=== PATIENT | female | born 1970 | race Caucasian/White ===

== ENCOUNTER → 2017-10-23 | Outpatient (CLI) | payer BC ==
--- NOTE | 2017-10-24 13:07 | MM ---
Reason for exam: screening (asymptomatic). Last mammogram was performed 12 years and 2 months ago. Physical Findings: A clinical breast exam by your physician is recommended on an annual basis and results should be correlated with mammographic findings. MG Screening Mammo w CAD Bilateral CC and MLO view(s) were taken. No prior studies available for comparison. The breast tissue is extremely dense which could obscure a lesion on mammography. Finding: There is a typically benign 3 mm obscured oval mass located 4 cm from the nipple in the lower outer quadrant, middle position of the left breast. ASSESSMENT: Incomplete: need additional imaging evaluation, BI-RAD 0 RECOMMENDATION: Special view mammogram of the left breast. If lesion persists on supplemental views, image directed ultrasound is recommended. [facility] will attempt to contact patient to return for supplemental views and ultrasound if indicated.
== END | disposition home or self-care (01) ==
LOC: RADMAMWWP 08:54
PROVIDERS: ATTEND Family Medicine
DX: Z12.31 Encounter for screening mammogram for malignant neoplasm of breast (principal)
CPT/HCPCS: 77067

== ENCOUNTER → 2017-11-22 | Outpatient (CLI) | payer BC ==
--- NOTE | 2017-11-22 10:32 | MM ---
Reason for exam: additional evaluation requested from abnormal screening. Last mammogram was performed 1 month ago. History: Patient has history of other cancer at age 34. Physical Findings: Nurse did not find any significant physical abnormalities on exam. MG 3D Work Up W/Cad LT Spot compression CC, spot compression MLO, and LM view(s) were taken of the left breast. Technologist: Belen Flower RT (R)(M) Prior study comparison: October 23, 2017, bilateral MG screening mammo w CAD. The breast tissue is heterogeneously dense. This may lower the sensitivity of mammography. Nodularity seen on screening does not clearly persist. Precautionary 6 month follow up recommended. These results were verbally communicated with the patient and result sheet given to the patient on 11/22/17. ASSESSMENT: Probably benign, BI-RAD 3 RECOMMENDATION: Follow-up diagnostic mammogram of the left breast in 6 months.
== END | disposition home or self-care (01) ==
LOC: RADMAMWWP 09:25
PROVIDERS: ATTEND Family Medicine
DX: N63.20 Unspecified lump in the left breast, unspecified quadrant (principal)
CPT/HCPCS: 77061; 77065

== ENCOUNTER → 2019-04-23 | Outpatient (CLI) | payer BC ==
--- NOTE | 2019-04-23 10:29 | US ---
EXAMINATION TYPE: US abdomen complete DATE OF EXAM: 04/23/2019 COMPARISON: None CLINICAL HISTORY: 48-year-old female Z85.528 History of Kidney Cancer. Right nephrectomy 2006 TECHNIQUE: Multiple sonographic images of the abdomen are obtained. FINDINGS: EXAM MEASUREMENTS: Liver Length: 15.1 cm Gallbladder Wall: 0.2 cm CBD: 5.6 mm Spleen: 9.8 cm Right Kidney: Surgically absent Left Kidney: 12.4 x 6.7 x 5.7 cm Pancreas: Tail obscured by overlying bowel gas, visualized portions wnl Liver: wnl Gallbladder: wnl Evidence for sonographic Ruiz's sign: No CBD: Upper limits of normal in caliber. Spleen: wnl Right Kidney: Surgically absent Left Kidney: No hydronephrosis. Upper IVC: wnl Abd Aorta: wnl IMPRESSION: 1. The bile duct measures upper limits of normal in caliber at 5.6 mm. This may be chronic in this pa tient. Correlate with alkaline phosphatase and bilirubin levels to exclude early biliary obstruction. 2. Status post right nephrectomy.
== END | disposition home or self-care (01) ==
LOC: RADUSWWP 09:41
PROVIDERS: ATTEND Family Medicine
DX: Z85.528 Personal history of other malignant neoplasm of kidney (principal); Z90.6 Acquired absence of other parts of urinary tract
CPT/HCPCS: 76700

== ENCOUNTER 2019-05-10 19:45 | Observation (INO) | payer BC ==
[2019-05-10] MEDS ORDERED: SODIUM CHLORIDE 0.9% 1,000 ML IV STA (20:43)
[2019-05-10] MEDS ORDERED: AMPICILLIN-SULBACTAM 3 GM in SODIUM CHLORIDE 0.9% 100 ML IVPB STA (20:45)
[2019-05-10] MEDS ORDERED: VANCOMYCIN IV PER PHARMACY 1 EACH MISC MISCELLANE PRN (20:47)
[2019-05-10] MEDS ORDERED: LORazepam 1 MG TAB PO STA (20:50)
[2019-05-10] MEDS ORDERED: MORPHINE SULFATE 4 MG/ML SYRINGE IV STA (20:50)
[2019-05-10] MEDS ORDERED: VANCOMYCIN 1,500 MG in SODIUM CHLORIDE 0.9% 250 ML IVPB STA (20:50)
--- NOTE | 2019-05-10 20:54 | ED ---
General Adult HPI - General Chief complaint: Wound/Laceration Stated complaint: Dog Bite Time Seen by Provider: 05/10/19 20:21 Source: patient, RN notes reviewed, old records reviewed Mode of arrival: ambulatory Limitations: no limitations - History of Present Illness Initial comments: 48-year-old female patient past history of solitary kidney due to renal cell carcinoma approximately 15 years ago presents to ED for chief complaint of infected dog bite. Patient reports that on Monday she was bitten by her dog on the left forearm region. Patient reports that she went to her primary care provider on Monday was placed on Augmentin administered a shot of Rocephin. Patient's tetanus is up-to-date. Patient reports that she saw her primary care provider today, she has total of 6 puncture wounds. 2 on the dorsal aspect of the proximal left forearm region. She does report that there was purulent drainage today, incision and drainage and packing was performed by primary care provider. Patient does have 2 other puncture wounds on the lateral aspect of the proximal left forearm. Drainage noted today. Patient has 2 more puncture wounds on the palmar aspect of the left forearm without any drainage noted. Patient reports that she did have erythema around these bite brown, she reports that this was marked by her primary care provider. Patient states that the erythema and warmth is not extending up into the elbow region. Patient is still full range of motion of the elbow. Denies a systemic symptoms of infection or fever. Denies any other complaints. Systemic: Pt denies fatigue, fever/chills, rash. Pt denies weakness, night sweats, weight loss. Neuro: Pt denies headache, visual disturbances, syncope or pre-syncope. HEENT: Pt denies ocular discharge or irritation, otalgia, rhinorrhea, pharyngitis or notable lymphadenopathy. Cardiopulmonary: Pt denies chest pain, SOB, heart palpitations, dyspnea on exertion. Abdominal/GI: Pt denies abdominal pain, n/v/d. : Pt denies dysuria, burning w/ urination, frequency/urgency. Denies new onset urinary or bowel incontinence. MSK: Pt denies myalgia, loss of strength or function in extremities. Neuro: Pt denies new onset weakness, paresthesias. - Related Data Allergies Allergy/AdvReac Type Severity Reaction Status Date / Time No Known Allergies Allergy Verified 05/10/19 19:53 Review of Systems ROS Statement: Those systems with pertinent positive or pertinent negative responses have been documented in the HPI. ROS Other: All systems not noted in ROS Statement are negative. Past Medical History Past Medical History: Cancer History of Any Multi-Drug Resistant Organisms: None Reported Additional Past Surgical History / Comment(s): rt kidney removed Past Psychological History: No Psychological Hx Reported Smoking Status: Never smoker Past Alcohol Use History: None Reported Past Drug Use History: None Reported General Exam - General Exam Comments Initial Comments: Constitutional: NAD, AOX3, Pt has pleasant affect. HEENT: NC/AT, trachea midline, neck supple, no lymphadenopathy. Posterior pharynx non erythematous, without exudates. External ears appear normal, without discharge. Mucous membranes moist. Eyes PERRLA, EOM intact. There is no scleral icterus. No pallor noted. Cardiopulmonary: RRR, no murmurs, rubs or gallops, no JVD noted. Lungs CTAB in anterior and posterior colon. No peripheral edema. Abdominal exam: Abdomen soft and non-distended. Abdomen non-tender to palpation in all 4 quadrants. Bowel sounds active in LLQ. No hepatosplenomegaly. No ecc hymosis Neuro: CN II-XII grossly intact. No nuchal rigidity. No raccon eyes, no bourne sign, no hemotympanum. No cervical spinal tenderness. MSK: No posterior calf tenderness bilaterally, homans sign negative bilaterally. Posterior tibialis and radial pulse +2 bilaterally. Sensation intact in upper and lower extremities. Full active ROM in upper and lower extremities, 5/5 stregnth. Derm: 6 total puncture wounds left forearm region. 2 on the proximal dorsal aspect of the left forearm, small amount of erythema, incision and drainage and packing was performed by primary care provider today. Small amount of erythema surrounding this. 2 puncture wounds on the lateral aspect of the proximal f orearm, mild amount of surrounding erythema, purulent drainage was expressed. Culture was obtained. 2 puncture wounds on the palmar aspect of the proximal left forearm. Small amount of surrounding erythema. No drainage. There is erythema and warmth extending into the elbow region. Full active range of motion. Neurovascularly intact. Limitations: no limitations Course Vital Signs 05/10/19 19:48 Temperature 98.2 F Pulse Rate 113 H Respiratory 20 Rate Blood Pressure 189/121 O2 Sat by Pulse 99 Oximetry Medical Decision Making - Medical Decision Making 48-year-old female patient with the for infected dog bite left forearm. Patient has been on Monday. Starting antibiotics on Monday. Isn't taking Augmentin.. Drainage began yesterday continued today. Denies any fevers. Patient was seen by primary care provider today were just drained with packing was performed. Physical exam did reveal erythematous puncture wound left forearm.Drainage was obtained of the lateral aspect. Culture was obtained. Plain films displayed subcutaneous edema. Patient initiated on Unasyn Vanco. We'll be admitted for further evaluation. Case discussed with Dr. Washington. - Lab Data Result diagrams: 05/10/19 21:18 05/10/19 21:18 Lab Results 05/10/19 05/10/19 05/10/19 Range/Units 21:18 21:18 21:18 WBC 9.7 (3.8-10.6) k/uL RBC 4.91 (3.80-5.40) m/uL Hgb 15.3 (11.4-16.0) gm/dL Hct 45.4 (34.0-46.0) % MCV 92.3 (80.0-100.0) fL MCH 31.1 (25.0-35.0) pg MCHC 33.7 (31.0-37.0) g/dL RDW 11.9 (11.5-15.5) % Plt Count 244 (150-450) k/uL Neutrophils % 66 % Lymphocytes % 19 % Monocytes % 7 % Eosinophils % 4 % Basophils % 0 % Neutrophils # 6.4 (1.3-7.7) k/uL Lymphocytes # 1.9 (1.0-4.8) k/uL Monocytes # 0.7 (0-1.0) k/uL Eosinophils # 0.4 (0-0.7) k/uL Basophils # 0.0 (0-0.2) k/uL Sodium 135 L (137-145) mmol/L Potassium 4.4 (3.5-5.1) mmol/L Chloride 101 (98-107) mmol/L Carbon Dioxide 25 (22-30) mmol/L Anion Gap 9 mmol/L BUN 25 H (7-17) mg/dL Creatinine 0.62 (0.52-1.04) mg/dL Est GFR (CKD-EPI)AfAm >90 (>60 ml/min/1.73 sqM) Est GFR (CKD-EPI)NonAf >90 (>60 ml/min/1.73 sqM) Glucose 115 H (74-99) mg/dL Plasma Lactic Acid Tristan 0.9 (0.7-2.0) mmol/L Calcium 9.5 (8.4-10.2) mg/dL Total Bilirubin 0.5 (0.2-1.3) mg/dL AST 23 (14-36) U/L ALT 11 (4-34) U/L Alkaline Phosphatase 106 (38-126) U/L Total Protein 7.4 (6.3-8.2) g/dL Albumin 4.3 (3.5-5.0) g/dL Disposition Clinical Impression: Infected dog bite, Failure of outpatient treatment Disposition: ADMITTED IP TO THIS [facility] Condition: Serious Is patient prescribed a controlled substance at d/c from ED?: No Referrals: Vernon Roa MD [Primary Care Provider] - 1-2 days
[2019-05-10 21:54] LABS: ALT 11 U/L (4-34); AST 23 U/L (14-36); African American GFR (CKD) >90 (>60 ml/min/1.73 sqM); Albumin 4.3 g/dL (3.5-5.0); Alkaline Phosphatase 106 U/L (38-126); Anion Gap 9 mmol/L; Basophils % (A) 0 %; Blood Urea Nitrogen 25 mg/dL (7-17); Calcium 9.5 mg/dL (8.4-10.2); Carbon Dioxide 25 mmol/L (22-30); Chloride 101 mmol/L (98-107); Eosinophils # (A) 0.4 k/uL (0-0.7); Eosinophils % (A) 4 %; Glucose 115 mg/dL (74-99); HCT 45.4 % (34.0-46.0); HGB 15.3 gm/dL (11.4-16.0); Lymphocytes # (A) 1.9 k/uL (1.0-4.8); Lymphocytes % (A) 19 %; MCH 31.1 pg (25.0-35.0); MCHC 33.7 g/dL (31.0-37.0); MCV 92.3 fL (80.0-100.0); Mean Platelet Volume 9.9; Monocytes # (A) 0.7 k/uL (0-1.0); Monocytes % (A) 7 %; Neutrophils # (A) 6.4 k/uL (1.3-7.7); Neutrophils % (A) 66 %; Non-African American GFR(CKD) >90 (>60 ml/min/1.73 sqM); Platelet Count 244 k/uL (150-450); Potassium 4.4 mmol/L (3.5-5.1); RBC 4.91 m/uL (3.80-5.40); RDW 11.9 % (11.5-15.5); Sodium 135 mmol/L (137-145); Total Bilirubin 0.5 mg/dL (0.2-1.3); Total Protein 7.4 g/dL (6.3-8.2); WBC 9.7 k/uL (3.8-10.6)
--- NOTE | 2019-05-10 21:59 | XR ---
EXAMINATION TYPE: XR forearm LT DATE OF EXAM: 05/10/2019 COMPARISON: NONE HISTORY: Pain. Dog bite TECHNIQUE: 2 views FINDINGS: There is subcutaneous edema around the forearm posteriorly. I see no fracture nor dislocati on. Wrist joint and elbow joint appear intact. IMPRESSION: Subcutaneous edema. No fracture seen.
--- NOTE | 2019-05-10 22:00 | XR ---
EXAMINATION TYPE: XR elbow complete LT DATE OF EXAM: 05/10/2019 COMPARISON: NONE HISTORY: Dogbite. Pain. TECHNIQUE: 3 views FINDINGS: Joint spaces are normal. I see no evidence of elbow joint effusion. There is subcutaneous e agnieszka on the dorsal aspect of the proximal ulna. IMPRESSION: No fracture. Normal elbow joint. Subcutaneous edema.
[2019-05-10] MEDS ORDERED: NALOXONE 0.4 MG/ML 1 ML VIAL IV PRN (22:01)
[2019-05-10] MEDS: SODIUM CHLORIDE 0.9% 1,000 ML IV SCH (22:41)
[2019-05-11] MEDS ORDERED: AMPICILLIN-SULBACTAM 3 GM in SODIUM CHLORIDE 0.9% 100 ML IVPB SCH ×2
[2019-05-11 00:15] LABS: Appearance,Urine Clear (Clear); Bilirubin,Urine Negative (Negative); Blood,Urine Negative (Negative); Color,Urine Light Yellow; Glucose,Urine (UA) Negative (Negative); Ketones,Urine Negative (Negative); Leukocyte Esterase,Urine Moderate (Negative); Nitrite,Urine Negative (Negative); PH, Urine 6.5 (5.0-8.0); Protein,Urine Negative (Negative); RBC,Urine 1 /hpf (0-5); Squamous Epithelial Cell,Urine 3 /hpf (0-4); Urobilinogen,Urine <2.0 mg/dL (<2.0); WBC,Urine 6 /hpf (0-5)
[2019-05-11] MEDS: MORPHINE SULFATE 4 MG/ML SYRINGE IV PRN ×2 (01:44→06:48)
[2019-05-11] MEDS: AMPICILLIN-SULBACTAM 3 GM in SODIUM CHLORIDE 0.9% 100 ML IVPB SCH ×4 (05:04→21:35)
[2019-05-11] MEDS: ONDANSETRON 4 MG/2 ML VIAL IVP PRN ×2 (09:15→16:34)
[2019-05-11] MEDS: VANCOMYCIN 1,500 MG in SODIUM CHLORIDE 0.9% 250 ML IVPB SCH (10:09)
--- NOTE | 2019-05-11 12:22 | P.HPIM ---
History of Present Illness H&P Date: 05/11/19 Chief Complaint: Dog bite left forearm This is a 48-year-old white female although the practice. She was trying to clean her dogs feet, but I'll get excited and bit her. Dogs frequently outside and chasing squirrels and other animals. She indicates she believes dog's shots are up-to-date. She indicates has not been acting strangely that she is aware of. She was bit on the left forearm both dorsal and volar. She cleaned the wounds with hydrogen peroxide but did not irrigate the deeper puncture wound of the dorsal forearm. She reports increased redness and pain. She was seen in the office yesterday in the morning, and wound cultures were taken. She was started on Augmentin and given a dose of IM Rocephin at this time. Last night her redness was worsening and she came emergency room. She received Unasyn and vancomycin started on Unasyn. He is now resting comfortably on the floor. She denies any chest pains, pressures, shortness breath. Animal control will be picking up her dog Review of Systems All systems: negative Past Medical History Past Medical History: Cancer History of Any Multi-Drug Resistant Organisms: None Reported Additional Past Surgical History / Comment(s): rt kidney removed Past Psychological History: No Psychological Hx Reported Smoking Status: Never smoker Past Alcohol Use History: None Reported Past Drug Use History: None Reported Medications and Allergies Home Medications Medication Instructions Recorded Confirmed Type Amoxicillin/Potassium Clav 1 tab PO BID 05/11/19 05/11/19 History [Augmentin 875-125 Tablet] Cholecalciferol [Vitamin D3 (25 1,000 unit PO DAILY 05/11/19 05/11/19 History Mcg = 1000 Iu)] Allergies Allergy/AdvReac Type Severity Reaction Status Date / Time No Known Allergies Allergy Verified 05/11/19 10:38 Physical Exam Vitals: Vital Signs Temp Pulse Pulse Resp BP BP Pulse Ox 05/11/19 06:20 97.5 F L 81 16 117/77 99 05/10/19 23:46 97.7 F 86 17 118/75 98 05/10/19 22:38 97.7 F 85 20 147/93 99 05/10/19 19:48 98.2 F 113 H 20 189/121 99 Intake and Output 05/10/19 05/11/19 05/11/19 22:59 06:59 14:59 Other: Voiding Method Toilet # Voids 0 Weight 78.517 kg 78.517 kg GENERAL: Well-appearing, well-nourished minimally nervous. There is a dressing to her left forearm. HEAD: Atraumatic, normocephalic. EYES: Pupils equal round and reactive to light, extraocular movements intact, sclera anicteric, conjunctiva are normal. ENT:nares patent, oropharynx clear without exudates. Moist mucous membranes. NECK: Normal range of motion, supple without lymphadenopathy or JVD, no thyromegaly LUNGS: Breath sounds clear to auscultation bilaterally and equal. No wheezes rales or rhonchi. HEART: Regular rate and rhythm without murmurs, rubs or gallops.S1S2 Normal ABDOMEN: Soft, nontender, normoactive bowel sounds. No guarding, no rebound. No masses appreciated. EXTREMITIES: Normal range of motion, no pitting or edema. No clubbing or cyanosis. There are 3 puncture wounds to the volar forearm with crust overlying these. There is no periwound erythema. There is deeper puncture wound to the dorsal left forearm. There is the remnants of silver alginate in the wound. There is no palpable discharged today. This wound is improved compared to my examination of it 24 hours ago. NEUROLOGICAL: Cranial nerves II through XII grossly intact. Normal speech, normal gait. PSYCH: Normal mood, normal affect. SKIN: Warm, Dry, normal turgor, no rashes or lesions noted. Results CBC & Chem 7: 05/10/19 21:18 05/10/19 21:18 Labs: Abnormal Lab Results - Last 24 Hours (Table) 05/10/19 05/10/19 Range/Units 21:18 23:53 Sodium 135 L (137-145) mmol/L BUN 25 H (7-17) mg/dL Glucose 115 H (74-99) mg/dL Ur Leukocyte Esterase Moderate H (Negative) Urine WBC 6 H (0-5) /hpf Microbiology - Last 24 Hours (Table) 05/10/19 21:44 Gram Stain - Preliminary Arm - Left Wound Culture - Preliminary Comments: Elbow and forearm x-rays reports were reviewed. No fractures or foreign bodies. Thrombosis Risk Factor Assmnt - DVT/VTE Prophylaxis DVT/VTE Prophylaxis: Low risk, early ambulation encouraged - Choose All That Apply Any of the Below Risk Factors Present?: Yes Each Factor Represents 1 point: Age 41-60 years, Obesity (BMI >25) Other Risk Factors: No Thrombosis Risk Factor Assessment Total Risk Factor Score: 2 Thrombosis Risk Factor Assessment Level: Low Risk Assessment and Plan (1) Infected dog bite Current Visit: Yes Status: Acute Priority: High Code(s): W54.0XXA - BITTEN BY DOG, INITIAL ENCOUNTER; L08.9 - LOCAL INFECTION OF THE SKIN AND SUBCUTANEOUS TISSUE, UNSP SNOMED Code(s): 514633758 (2) Cellulitis of left forearm Current Visit: Yes Status: Acute Priority: High Code(s): L03.114 - CELLULITIS OF LEFT UPPER LIMB SNOMED Code(s): 42713083 (3) Failure of outpatient treatment Current Visit: Yes Status: Acute Priority: High Code(s): Z78.9 - OTHER SPECIFIED HEALTH STATUS SNOMED Code(s): 979519000 Plan: She has received 1 dose of vancomycin and there is not need for further doses this time. Continue Unasyn. General surgeon in consult for possible debridement. We'll wait on his evaluation. Infectious disease will be consult regarding the risk of rabies and her dog. Wound cultures from [facility] from May 10 2019 a.m. show few gram- negative rods at this time. Repeat labs in a.m. Packed the wound gently withl silver alginate rope. Silvadene cream every 12 hours to the cellulitic area periwound and the volar dog bite puncture wounds that are crusted. Nonstick along with Kerlix PEG tube overlying this for protection. In early ambulation's bathroom privileges along with regular diet. Repeat labs in a.m. She'll be reevaluated next 24 hours per Family medicine.
[2019-05-11] MEDS ORDERED: HYDROcodone/APAP 7.5-325MG 1 EACH TAB PO PRN (12:23)
[2019-05-11] MEDS ORDERED: MORPHINE SULFATE 2 MG/ML SYRINGE IVP PRN (12:23)
--- NOTE | 2019-05-11 12:24 | P.GSCN ---
History of Present Illness Consult date: 05/11/19 Reason for Consult: Dog bite History of present illness: 48-year-old female was bit by her dog on Monday. Bite occurred in the left forearm. Yesterday she noticed some increasing swelling. Said when she was moving the arm she had difficulty bending at the elbow. Swelling was bad enough that they could not see her elbow joint well. Today much better. Small amount of drainage. Cultures are showing gram-positive cocci. She is afebrile. Began Augmentin with Rocephin shot on Monday. Tetanus reportedly up-to-date. Total of 6 puncture wounds. No history of diabetes. Denies any paresthesias. Patient had x-rays of the elbow and forearm without subcutaneous emphysema noted, no fractures Review of Systems The patient denies any acute changes in vision or hearing, no dysphagia or odynophagia, no chest pain or shortness of breath, no dysuria or hematuria, no headache, no runny nose, no rectal bleeding or melena, no unexplained weight loss Past Medical History Past Medical History: Cancer History of Any Multi-Drug Resistant Organisms: None Reported Additional Past Surgical History / Comment(s): rt kidney removed Past Psychological History: No Psychological Hx Reported Smoking Status: Never smoker Past Alcohol Use History: None Reported Past Drug Use History: None Reported Medications and Allergies Home Medications Medication Instructions Recorded Confirmed Type Amoxicillin/Potassium Clav 1 tab PO BID 05/11/19 05/11/19 History [Augmentin 875-125 Tablet] Cholecalciferol [Vitamin D3 (25 1,000 unit PO DAILY 05/11/19 05/11/19 History Mcg = 1000 Iu)] Allergies Allergy/AdvReac Type Severity Reaction Status Date / Time No Known Allergies Allergy Verified 05/11/19 10:38 Surgical - Exam Vital Signs Temp Pulse Resp BP Pulse Ox 98.2 F 113 H 20 189/121 99 05/10/19 19:48 05/10/19 19:48 05/10/19 19:48 05/10/19 19:48 05/10/19 19:48 Physical exam: General: Well-developed, well-nourished HEENT: Normocephalic, sclerae nonicteric Abdomen: Nontender, nondistended Extremities: No edema mild left forearm swelling, minimal erythema, mild te nderness, 6 bite wounds total, largest and only one draining any significant fluid is lateral and dorsal Neuro: Alert and oriented Results - Labs 05/10/19 21:18 05/10/19 21:18 Abnormal Lab Results - Last 24 Hours (Table) 05/10/19 05/10/19 Range/Units 21:18 23:53 Sodium 135 L (137-145) mmol/L BUN 25 H (7-17) mg/dL Glucose 115 H (74-99) mg/dL Ur Leukocyte Esterase Moderate H (Negative) Urine WBC 6 H (0-5) /hpf Microbiology - Last 24 Hours (Table) 05/10/19 21:44 Gram Stain - Preliminary Arm - Left Wound Culture - Preliminary Diabetes panel 05/10/19 Range/Units 21:18 Sodium 135 L (137-145) mmol/L Potassium 4.4 (3.5-5.1) mmol/L Chloride 101 (98-107) mmol/L Carbon Dioxide 25 (22-30) mmol/L BUN 25 H (7-17) mg/dL Creatinine 0.62 (0.52-1.04) mg/dL Glucose 115 H (74-99) mg/dL Calcium 9.5 (8.4-10.2) mg/dL AST 23 (14-36) U/L ALT 11 (4-34) U/L Alkaline Phosphatase 106 (38-126) U/L Total Protein 7.4 (6.3-8.2) g/dL Albumin 4.3 (3.5-5.0) g/dL Calcium panel 05/10/19 Range/Units 21:18 Calcium 9.5 (8.4-10.2) mg/dL Albumin 4.3 (3.5-5.0) g/dL Pituitary panel 05/10/19 Range/Units 21:18 Sodium 135 L (137-145) mmol/L Potassium 4.4 (3.5-5.1) mmol/L Chloride 101 (98-107) mmol/L Carbon Dioxide 25 (22-30) mmol/L BUN 25 H (7-17) mg/dL Creatinine 0.62 (0.52-1.04) mg/dL Glucose 115 H (74-99) mg/dL Calcium 9.5 (8.4-10.2) mg/dL Adrenal panel 05/10/19 Range/Units 21:18 Sodium 135 L (137-145) mmol/L Potassium 4.4 (3.5-5.1) mmol/L Chloride 101 (98-107) mmol/L Carbon Dioxide 25 (22-30) mmol/L BUN 25 H (7-17) mg/dL Creatinine 0.62 (0.52-1.04) mg/dL Glucose 115 H (74-99) mg/dL Calcium 9.5 (8.4-10.2) mg/dL Total Bilirubin 0.5 (0.2-1.3) mg/dL AST 23 (14-36) U/L ALT 11 (4-34) U/L Alkaline Phosphatase 106 (38-126) U/L Total Protein 7.4 (6.3-8.2) g/dL Albumin 4.3 (3.5-5.0) g/dL Assessment and Plan Plan: 48-year-old female with dog bite wound left forearm. No need for surgical debridement or drainage at this time. Continue antibiotics. Patient seems to be responding well. We'll follow with you.
[2019-05-11] MEDS: SODIUM CHLORIDE 0.9% 1,000 ML IV SCH ×2 (12:42→21:34)
--- NOTE | 2019-05-11 16:12 | P.CONS ---
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 currently no other medical problems the patient was bitten on the left forearm by her pet dog on Monday that is 3 days prior to presentation hospital, the patient said she went to see her primary care physician the next day she was given a shot of Rocephin tetanus up-to-date and was sent home on oral Augmentin the patient was reevaluated in the office by the PCP on Monday and apparently she was doing okay and she did have line Placed around the area of the redness and she was advised if the redness is spreading to go to the ER that evening she noticed the redness to be spreading hence she presented to [facility] ER, patient was complaining of pain throbbing intensity about 7 out of 10 and no radiation with associated swelling and redness there was some purulent drainage From one of the wound which has been cultured by the ER physician patient did have x-rays of the left forearm and elbow did show some trace edema but no bony changes patient has been admitted to the hospital she was started on vancomycin and Unasyn infection disease has been consulted for further recommendation regarding antibiotic, this is a patient pet dog which has been up-to-date on vaccinations including to rabies Review of Systems Positive point has been mentioned in the HPI rest of the systems are negative Past Medical History Past Medical History: Cancer History of Any Multi-Drug Resistant Organisms: None Reported Additional Past Surgical History / Comment(s): rt kidney removed Past Psychological History: No Psychological Hx Reported Smoking Status: Never smoker Past Alcohol Use History: None Reported Past Drug Use History: None Reported Medications and Allergies Home Medications Medication Instructions Recorded Confirmed Type Amoxicillin/Potassium Clav 1 tab PO BID 05/11/19 05/11/19 History [Augmentin 875-125 Tablet] Cholecalciferol [Vitamin D3 (25 1,000 unit PO DAILY 05/11/19 05/11/19 History Mcg = 1000 Iu)] Allergies Allergy/AdvReac Type Severity Reaction Status Date / Time No Known Allergies Allergy Verified 05/11/19 10:38 Physical Exam Vitals: Vital Signs Temp Pulse Pulse Resp BP BP Pulse Ox 05/11/19 06:20 97.5 F L 81 16 117/77 99 05/10/19 23:46 97.7 F 86 17 118/75 98 05/10/19 22:38 97.7 F 85 20 147/93 99 05/10/19 19:48 98.2 F 113 H 20 189/121 99 Intake and Output 05/10/19 05/11/19 05/11/19 22:59 06:59 14:59 Other: Voiding Method Toilet # Voids 0 Weight 78.517 kg 78.517 kg GENERAL DESCRIPTION: Middle-aged female lying in bed, no distress. No tachypnea or accessory muscle of respiration use. HEENT: Shows Pallor , no scleral icterus. Oral mucous membrane is dry. No pharyngeal erythema or thrush NECK: Trachea central, no thyromegaly. LUNGS: Unlabored breathing. Clear to auscultation anteriorly. No wheeze or crackle. HEART: S1, S2, regular rate and rhythm. No loud murmur ABDOMEN: Soft, no tenderness , guarding or rigidity, no organomegaly EXTREMITIES: Left forearm is swollen small puncture wound surrounding redness no purulent drainage. SKIN: No rash, no masses palpable. NEUROLOGICAL: The patient is awake, alert, oriented x3, mood and affect normal. Results CBC & Chem 7: 05/10/19 21:18 05/10/19 21:18 Labs: Abnormal Lab Results - Last 24 Hours (Table) 05/10/19 05/10/19 Range/Units 21:18 23:53 Sodium 135 L (137-145) mmol/L BUN 25 H (7-17) mg/dL Glucose 115 H (74-99) mg/dL Ur Leukocyte Esterase Moderate H (Negative) Urine WBC 6 H (0-5) /hpf Microbiology - Last 24 Hours (Table) 05/10/19 21:44 Gram Stain - Preliminary Arm - Left Wound Culture - Preliminary Assessment and Plan Assessment: 1-patient with a left forearm dog bite wound with secondary cellulitis and this patient failing outpatient oral Augmentin therapy likely because of the border of the disease versus secondary to gram-positive skin jeff on the patient with no evidence of any abscess clinically 2-this being the patient had dog who is up to date on vaccination will be low risk for rabies hence no need for vaccination, as the dog can be monitored (1) Cellulitis of left forearm Current Visit: Yes Status: Acute Priority: High Code(s): L03.114 - CELLULITIS OF LEFT UPPER LIMB SNOMED Code(s): 43773592 (2) Failure of outpatient treatment Current Visit: Yes Status: Acute Priority: High Code(s): Z78.9 - OTHER SPECIFIED HEALTH STATUS SNOMED Code(s): 246811147 (3) Infected dog bite Current Visit: Yes Status: Acute Priority: High Code(s): W54.0XXA - BITTEN BY DOG, INITIAL ENCOUNTER; L08.9 - LOCAL INFECTION OF THE SKIN AND SUBCUTANEOUS TISSUE, UNSP SNOMED Code(s): 231133507 Plan: 1-Vancomycin pharmacy to dose target trough of 15 while watching his kidney function and Vanco trough closely 2-Unasyn 3 g every 6 hours We will follow on clinical condition and cultures to further adjust medication if needed Thank you for this consultation will follow this patient with you Time with Patient: Greater than 30
[2019-05-12] MEDS: VANCOMYCIN 1,500 MG in SODIUM CHLORIDE 0.9% 250 ML IVPB SCH ×2 (00:01→11:08)
[2019-05-12] MEDS: AMPICILLIN-SULBACTAM 3 GM in SODIUM CHLORIDE 0.9% 100 ML IVPB SCH ×2 (04:31→09:07)
[2019-05-12] MEDS: SODIUM CHLORIDE 0.9% 1,000 ML IV SCH ×2 (04:37→09:15)
[2019-05-12 06:27] VITALS: RESP 16
[2019-05-12 07:51] LABS: Basophils % (A) 0 %; Eosinophils # (A) 0.3 k/uL (0-0.7); Eosinophils % (A) 5 %; HCT 38.4 % (34.0-46.0); HGB 12.8 gm/dL (11.4-16.0); Lymphocytes # (A) 1.3 k/uL (1.0-4.8); Lymphocytes % (A) 21 %; MCH 30.9 pg (25.0-35.0); MCHC 33.2 g/dL (31.0-37.0); MCV 92.9 fL (80.0-100.0); Mean Platelet Volume 9.3; Monocytes # (A) 0.4 k/uL (0-1.0); Monocytes % (A) 6 %; Neutrophils # (A) 4.2 k/uL (1.3-7.7); Neutrophils % (A) 65 %; Platelet Count 236 k/uL (150-450); RBC 4.13 m/uL (3.80-5.40); RDW 11.9 % (11.5-15.5); WBC 6.4 k/uL (3.8-10.6)
[2019-05-12 07:59] LABS: African American GFR (CKD) >90 (>60 ml/min/1.73 sqM); Anion Gap 3 mmol/L; Blood Urea Nitrogen 12 mg/dL (7-17); Calcium 8.8 mg/dL (8.4-10.2); Carbon Dioxide 26 mmol/L (22-30); Chloride 106 mmol/L (98-107); Glucose 99 mg/dL (74-99); Magnesium 1.8 mg/dL (1.6-2.3); Non-African American GFR(CKD) >90 (>60 ml/min/1.73 sqM); Potassium 4.7 mmol/L (3.5-5.1); Sodium 135 mmol/L (137-145)
[2019-05-12] MEDS ORDERED: CHOLECALCIFEROL 1,000 UNIT TAB PO SCH (09:00)
--- NOTE | 2019-05-12 10:43 | P.PN ---
Subjective Progress Note Date: 05/12/19 Principal diagnosis: Left arm bite wound Patient doing better today. Says her discomfort is improved. She is afebrile. White blood cell count normal. Objective - Vital Signs Vital signs: Vital Signs Temp 97.6 F 05/12/19 05:43 Pulse 84 05/12/19 05:43 Resp 16 05/12/19 05:43 BP 114/76 05/12/19 05:43 Pulse Ox 97 05/12/19 05:43 Intake & Output 05/11/19 05/12/19 05/12/19 18:59 06:59 18:59 Other: Voiding Method Toilet Toilet Toilet # Voids 1 1 # Bowel Movements 0 - Exam Left forearm with mild induration at the largest bite wound dorsolateral - Labs CBC & Chem 7: 05/12/19 07:24 05/12/19 07:24 Labs: Abnormal Lab Results - Last 24 Hours (Table) 05/12/19 Range/Units 07:24 Sodium 135 L (137-145) mmol/L Microbiology - Last 24 Hours (Table) 05/10/19 21:18 Blood Culture - Preliminary Blood No Growth after 24 hours 05/10/19 21:44 Gram Stain - Preliminary Arm - Left Wound Culture - Preliminary Assessment and Plan (1) Infected dog bite Narrative/Plan: Continue antibiotics. Await ID recommendations for home antibiotics. Possible discharge today or tomorrow. No debridement or I&D required currently. Current Visit: Yes Status: Acute Priority: High Code(s): W54.0XXA - BITTEN BY DOG, INITIAL ENCOUNTER; L08.9 - LOCAL INFECTION OF THE SKIN AND SUBCUTANEOUS TISSUE, UNSP SNOMED Code(s): 178253333
--- NOTE | 2019-05-12 12:26 | P.DS ---
Providers Date of admission: 05/10/19 21:33 Expected date of discharge: 05/12/19 Attending physician: Vernon Roa Consults: 05/11/19 10:06 Consult Physician Routine Consulting Provider: Arslan Slaughter Consult Reason/Comments: dog bite Do you want consulting provider notified?: Yes 05/11/19 11:10 Consult Physician Routine Consulting Provider: Alexandra Frazier Consult Reason/Comments: dog bite, r/o rabies Do you want consulting provider notified?: Yes Primary care physician: Vernon Roa - Discharge Diagnosis(es) (1) Infected dog bite Current Visit: Yes Status: Acute Priority: High (2) Cellulitis of left forearm Current Visit: Yes Status: Acute Priority: High (3) Failure of outpatient treatment Current Visit: Yes Status: Acute Priority: High Hospital Course: This is a 48-year-old white female although the practice. She was trying to clean her dogs feet, but I'll get excited and bit her. Dogs frequently outside and chasing squirrels and other animals. She indicates she believes dog's shots are up-to-date. She indicates has not been acting strangely that she is aware of. She was bit on the left forearm both dorsal and volar. She cleaned the wounds with hydrogen peroxide but did not irrigate the deeper puncture wound of the dorsal forearm. She reports increased redness and pain. She was seen in the office yesterday in the morning, and wound cultures were taken. She was started on Augmentin and given a dose of IM Rocephin at this time. Last night her redness was worsening and she came emergency room. She received Unasyn and vancomycin started on Unasyn. He is now resting comfortably on the floor. She denies any chest pains, pressures, shortness breath. Animal control will be picking up her dog 05/12/2019: Patient is doing well. There is no erythema nor wound. There is minimal discharge. In using Aquacel silver overlying the open wound of the dorsal forearm, and Silvadene cream to the floor aspect crust area puncture wounds. She has no white count. She has minimal edema. No fever. She continued on vancomycin and Unasyn through her stay. Infectious diseases consult and recommended no further need for rabies vaccination and that she could go home on Augmentin. I discussed the case personally with Dr. Frazier. Cultures were reviewed from [facility] taken Monday and the cultures taken here in the emergency room Monday night. He believes analogies received some IV antibiotics the Augmentin should be sufficient. Patient was discharged home this time with outpatient follow-up soon. Patient Condition at Discharge: Fair Plan - Discharge Summary New Discharge Prescriptions: Continue Cholecalciferol [Vitamin D3 (25 Mcg = 1000 Iu)] 1,000 unit PO DAILY Amoxicillin/Potassium Clav [Augmentin 875-125 Tablet] 1 tab PO BID Discharge Medication List Amoxicillin/Potassium Clav [Augmentin 875-125 Tablet] 1 tab PO BID 05/11/19 [History] Cholecalciferol [Vitamin D3 (25 Mcg = 1000 Iu)] 1,000 unit PO DAILY 05/11/19 [History] Follow up Appointment(s)/Referral(s): Vernon Roa MD [Primary Care Provider] - 1-2 days Discharge Disposition: HOME SELF-CARE
--- NOTE | 2019-05-12 13:06 | PN ---
PROGRESS NOTE DATE OF SERVICE: 05/12/2019 REASON FOR FOLLOWUP: Left forearm dog bite with cellulitis. INTERVAL HISTORY: The patient is currently afebrile. She has been breathing comfortably. The patient denies having any chest pain or shortness of breath. No cough. No nausea. No vomiting. No abdominal pain. Overall swelling and redness of the left arm have improved. PHYSICAL EXAMINATION: Blood pressure 114/76 with a pulse of 84, temperature 97.6. She is 97% on room air. General description is a middle-aged female up in the room in no distress. RESPIRATORY SYSTEM: Unlabored breathing. Clear to auscultation anteriorly. HEART: S1, S2. Regular rate and rhythm. ABDOMEN: Soft. No tenderness. EXTREMITIES: Left arm swelling and redness have decreased. No drainage. LABS: Hemoglobin is 12.8, white count 6.4. BUN of 12, creatinine 0.64. Blood cultures have been negative. Culture done here is showing rare gram-positive bacilli. DIAGNOSTIC IMPRESSION AND PLAN: Patient with left arm dog bite with cellulitis failing outpatient oral Augmentin therapy, most likely secondary to burden of disease. Patient seems to have shown overall clinical improvement with IV Unasyn and vancomycin with no evidence of any gram- positive cocci. Recommend finishing therapy with oral Augmentin 875 b.i.d. for 10 days and close outpatient followup. This was discussed in detail with the admitting physician working on discharge. Continue with supportive care. MMODL / IJN: [id number] /
[2019-05-12 15:32] VITALS: BP 149/87; PULSE 78; TEMP 98.1
[2019-05-12] MEDS ORDERED: VANCOMYCIN TROUGH DUE 1 EACH MISC MISCELLANE ONE (22:00)
== END 2019-05-12 13:30 | disposition home or self-care (01) ==
LOC: EC 19:45 → 6NMEDSUR 21:33
PROVIDERS: ADMIT Family Medicine; ATTEND Family Medicine
DX: L08.89 Other specified local infections of the skin and subcutaneous tissue (principal); L03.114 Cellulitis of left upper limb; B96.89 Other specified bacterial agents as the cause of diseases classified elsewhere; S51.832A Puncture wound without foreign body of left forearm, initial encounter; Z78.9 Other specified health status; E66.9 Obesity, unspecified; Z68.29 Body mass index [BMI] 29.0-29.9, adult; Z85.528 Personal history of other malignant neoplasm of kidney; Z90.5 Acquired absence of kidney; W54.0XXA Bitten by dog, initial encounter
CPT/HCPCS: 96376; 96361; 96366 ×3; 96375 ×2; 96365; 96367; 99284; 36415; 80053; 80048; 83605; 83735; 85025 ×2; 81001; 81025; 87040; 87070; 87205; 73080; 73090; G0378 ×3; J3370 ×3; J2270 ×3; J2405; J0295 ×3

== ENCOUNTER → 2019-05-24 | Outpatient (CLI) | payer BC ==
--- NOTE | 2019-05-24 10:53 | MM ---
Reason for exam: screening (asymptomatic). Last mammogram was performed 1 year and 6 months ago. History: Patient is postmenopausal and has history of other cancer at age 34. Physical Findings: A clinical breast exam by your physician is recommended on an annual basis and results should be correlated with mammographic findings. MG Screening Mammo w CAD Bilateral CC and MLO view(s) were taken. Prior study comparison: November 22, 2017, left breast MG 3d work up w/cad LT. October 23, 2017, bilateral MG screening mammo w CAD. The breast tissue is heterogeneously dense. This may lower the sensitivity of mammography. No suspicious abnormality. No significant changes when compared with prior studies. ASSESSMENT: Negative, BI-RAD 1 RECOMMENDATION: Routine screening mammogram of both breasts in 1 year.
== END | disposition home or self-care (01) ==
LOC: RADMAMWWP 07:54
PROVIDERS: ATTEND Obstetrics & Gynecology
DX: Z12.31 Encounter for screening mammogram for malignant neoplasm of breast (principal)
CPT/HCPCS: 77067

== ENCOUNTER → 2021-04-14 | Outpatient (CLI) | payer BC ==
--- NOTE | 2021-04-16 09:46 | MM ---
Reason for exam: screening (asymptomatic). Last mammogram was performed 1 year and 11 months ago. History: Patient is postmenopausal and has history of other cancer at age 34. Taking estrogen for 1 year 6 months. Physical Findings: A clinical breast exam by your physician is recommended on an annual basis and results should be correlated with mammographic findings. MG Screening Mammo w CAD Bilateral CC and MLO view(s) were taken. Prior study comparison: May 24, 2019, bilateral MG screening mammo w CAD. November 22, 2017, left breast MG 3d work up w/cad LT. The breast tissue is heterogeneously dense. This may lower the sensitivity of mammography. Subareolar nodular asymmetry left breast more defined. ASSESSMENT: Incomplete: need additional imaging evaluation, BI-RAD 0 RECOMMENDATION: Special view mammogram of the left breast. (3D) If lesion persists on supplemental views, image directed ultrasound is recommended. [facility] will attempt to contact patient to return for supplemental views and ultrasound if indicated.
== END | disposition home or self-care (01) ==
LOC: RADMAMWWP 07:18
PROVIDERS: ATTEND Obstetrics & Gynecology
DX: Z12.31 Encounter for screening mammogram for malignant neoplasm of breast (principal); Z78.0 Asymptomatic menopausal state
CPT/HCPCS: 77067

== ENCOUNTER → 2021-04-21 | Outpatient (CLI) | payer BC ==
--- NOTE | 2021-04-21 14:09 | MM ---
Reason for exam: additional evaluation requested from abnormal screening. Last mammogram was performed less than 1 month ago. History: Patient is postmenopausal and has history of other cancer at age 34. Taking estrogen for 1 year 6 months. Physical Findings: Nurse did not find any significant physical abnormalities on exam. MG 3D Work Up W/Cad LT Spot compression CC, spot compression MLO, and LM view(s) were taken of the left breast. Prior study comparison: April 14, 2021, bilateral MG screening mammo w CAD. May 24, 2019, bilateral MG screening mammo w CAD. There is no discrete abnormality including area of concern. Probable retroareolar ducts. 6 month follow up recommended. These results were verbally communicated with the patient and result sheet given to the patient on 04/21/21. ASSESSMENT: Probably benign, BI-RAD 3 RECOMMENDATION: Follow-up diagnostic mammogram of the left breast in 6 months.
== END | disposition home or self-care (01) ==
LOC: RADMAMWWP 13:26
PROVIDERS: ATTEND Obstetrics & Gynecology
DX: R92.8 Other abnormal and inconclusive findings on diagnostic imaging of breast (principal)
CPT/HCPCS: 77061; 77065

== ENCOUNTER → 2023-05-15 | Outpatient (CLI) | payer BC ==
--- NOTE | 2023-05-16 20:04 | MM ---
Reason for Exam: Screening (asymptomatic). Last screening mammogram was performed 12 month(s) ago. Patient History: Menarche at age 12. First Full-Term at age 24. Postmenopausal. Patient has history of breast feeding. Other cancer, age 34. Currently using Estrogen, for 1 year, 6 months. Risk Values: Radha 5 year model risk: 1.2%. NCI Lifetime model risk: 8.5%. Prior Study Comparison: 04/14/2021 Bilateral Screening Mammogram, [facility]. 04/21/2021 Left Diagnostic Mammogram, [facility]. 05/12/2022 Bilateral MG screening mammo w CAD, [facility]. Tissue Density: The breast tissue is heterogeneously dense. This may lower the sensitivity of mammography. Findings: Analyzed By CAD. Unchanged bilateral areas of asymmetric density. There is no suspicious group of microcalcifications or new suspicious mass in either breast. Overall Assessment: Benign, BI-RAD 2 Management: Screening Mammogram of both breasts in 1 year. . Patient should continue monthly self-breast exams. A clinical breast exam by your physician is recommended on an annual basis. This exam should not preclude additional follow-up of suspicious palpable abnormalities. Note on Radha scores and lifetime risk: 1. A Radha score greater than 3% is considered moderate risk. If this is the case, consider specialist referral to assess eligibility for a risk reducing agent. 2. If overall lifetime risk for the development of breast cancer is 20% or higher, the patient may qualify for future screening with alternating mammogram and breast MRI. Electronically signed and approved by: Andressa Olmos M.D. Radiologist
== END | disposition home or self-care (01) ==
LOC: RADMAMWWP 07:08
PROVIDERS: ATTEND Obstetrics & Gynecology
DX: Z12.31 Encounter for screening mammogram for malignant neoplasm of breast (principal); Z78.0 Asymptomatic menopausal state
CPT/HCPCS: 77063; 77067

== ENCOUNTER 2023-10-24 07:43 | Emergency (ER) | payer BC ==
[2023-10-24] MEDS ORDERED: ASPIRIN 325 MG TAB ONE (08:52)
[2023-10-24] MEDS ORDERED: KETOROLAC 15 MG/ML 1 ML VIAL ONE (08:52)
[2023-10-24] MEDS ORDERED: MORPHINE SULFATE 4 MG/ML SYRINGE ONE (08:52)
--- NOTE | 2023-11-29 14:42 | XR ---
Patient Belkis Dominguez ID [id number] Order # EXAMINATION TYPE: XR chest 2V DATE OF EXAM: 11/05/2023 COMPARISON: No comparison available on downtime PACS. INDICATION: Chest pain upper back pain TECHNIQUE: Frontal and lateral views of the chest are obtained. FINDINGS: The heart size is normal. The pulmonary vasculature is normal. The lungs are clear. IMPRESSION: 1. No acute pulmonary process.
== END 2023-10-24 12:45 | disposition home or self-care (01) ==
LOC: EC 07:43
DX: S46.912A Strain of unspecified muscle, fascia and tendon at shoulder and upper arm level, left arm, initial encounter (principal); R07.89 Other chest pain; F17.290 Nicotine dependence, other tobacco product, uncomplicated; X50.9XXA Other and unspecified overexertion or strenuous movements or postures, initial encounter
CPT/HCPCS: 85379; 80053; 84484; 85025; 71046; 99285; 96374; 96375; J2270; J1885

== ENCOUNTER → 2024-05-16 | Outpatient (CLI) | payer BC ==
--- NOTE | 2024-05-16 10:32 | MM ---
Reason for Exam: Screening (asymptomatic). Last screening mammogram was performed 12 month(s) ago. Patient History: Menarche at age 12. First Full-Term at age 24. Postmenopausal. Patient has history of breast feeding. Other cancer, age 34. Currently using Estrogen, for 1 year, 6 months. Risk Values: Radha 5 year model risk: 1.2%. NCI Lifetime model risk: 8.3%. Prior Study Comparison: 04/21/2021 Left Diagnostic Mammogram, [facility]. 05/12/2022 Bilateral MG screening mammo w CAD, [facility]. 05/15/2023 Bilateral MG 3D screening mammo w/cad, [facility]. Tissue Density: The breasts are heterogeneously dense, which may obscure small masses. Findings: Analyzed By CAD. Right breast: There is no suspicious group of microcalcifications or new suspicious mass. Left breast: There is no suspicious group of microcalcifications or new suspicious mass. Overall Assessment: Negative, BI-RAD 1 Management: Screening Mammogram of both breasts in [address] [facility] will attempt to contact patient to return for supplemental views and ultrasound if indicated. Patient should continue monthly self-breast exams. A clinical breast exam by your physician is recommended on an annual basis. This exam should not preclude additional follow-up of suspicious palpable abnormalities. Note on Radha scores and lifetime risk: 1. A Radha score greater than 3% is considered moderate risk. If this is the case, consider specialist referral to assess eligibility for a risk reducing agent. 2. If overall lifetime risk for the development of breast cancer is 20% or higher, the patient may qualify for future screening with alternating mammogram and breast MRI. [facility], , 05/16/2024 10:29 AM. Electronically signed and approved by: Iván Alvarez DO
== END | disposition home or self-care (01) ==
LOC: RADMAMWWP 08:35
PROVIDERS: ATTEND Obstetrics & Gynecology
DX: Z12.31 Encounter for screening mammogram for malignant neoplasm of breast (principal); R92.333 Mammographic heterogeneous density, bilateral breasts; Z78.0 Asymptomatic menopausal state; Z79.810 Long term (current) use of selective estrogen receptor modulators (SERMs)
CPT/HCPCS: 77067